=== PATIENT | female | born 2000 | race Caucasian/White ===

== ENCOUNTER 2019-08-25 09:32 | Outpatient (CLI) | payer OTHER ==
--- NOTE | 2019-08-25 10:47 | ULT ---
Ultrasound of the thyroid gland: 08/25/2019 COMPARISON:None available HISTORY:Elevated T4 levels TECHNIQUE: Multiplanar grayscale sonographic imaging of the thyroid gland. FINDINGS: The thyroid isthmus measures1-2 mm in AP dimension. The right lobe of the thyroid gland measures1.7 x 4.0 x 1.3 cm. The left lobe of the thyroid gland measures1.3 x 3.3 x 1.1 cm. Thyroid parenchyma is unremarkable. No thyroid nodules noted. IMPRESSION:Unremarkable thyroid ultrasound.
--- NOTE | 2019-08-25 10:48 | ULT ---
EXAM: Left lower extremity venous Doppler US HISTORY: left lower extremity tingling and pain FINDINGS: Grayscale, color-flow, Doppler evaluation, spectral analysis of the left lower extremity venous struc tures is performed with 2-D imaging. The left common femoral, superficial femoral, popliteal, posterior tibial, proximal greater saphenous and profunda femoral veins are imaged. There is normal luminal compressibility, flow, and augmentation the visualized deep venous structures of the left lower extremity. IMPRESSION: No evidence of a deep vein thrombosis in the left lower extremity.
--- NOTE | 2019-08-25 13:18 | ULT ---
ULTRASOUND ABDOMEN: HISTORY: Pain. COMPARISON: None. FINDINGS: Real-time, deras scale, and color evaluation of the abdomen was performed. The visualized portions of the aorta, IVC, and pancreas are unremarkable. No dilatation of the abdom inal aorta with normal velocity. The hepatic echotexture is normal. IVC is patent. No hepatic mass. The liver measures 16 cm in length. Portal vein is patent with antegrade flow. Common bile duct measures 3 mm, normal. Gallbladder is normal. No pericholecystic fluid. The common bile duct measures 3 mm, normal. The right kidney measures 9.4 x 4.7 x 4.7 cm without mass, hydronephrosis, or abnormal calcifications . The left kidney measures 10.2 x 4.9 x 4.8 cm without mass, hydronephrosis, or abnormal calcificati ons. The spleen measures 11.2 cm in length. IMPRESSION: Normal exam. POS: [facility]
--- NOTE | 2019-08-25 13:42 | ULT ---
ULTRASOUND DOPPLER DUPLEX ARTERIAL LEFT LOWER EXTREMITY: 08/25/19 HISTORY: 18-year-old female with left lower extremity paresthesia. TECHNIQUE: Miguel scale, color flow, and spectral analysis, of major arteries of left lower extremity. FINDINGS: All waveforms are triphasic. Highest peak systolic velocities in cm/s: Common femoral: 125 Profunda femoral: 95 Superficial femoral proximal: 125 Superficial femoral mid: 130 Superficial femoral distal: 125 Popliteal: 55 Anterior tibial: 50 Posterior tibial: 60 Dorsalis pedis 40 IMPRESSION: Normal. POS: [facility]
== END 2019-08-25 09:33 | disposition home or self-care (01) ==
LOC: ULT 09:32
DX: R94.6 Abnormal results of thyroid function studies (principal); R20.2 Paresthesia of skin
CPT/HCPCS: 76536; 93923; 93975